=== PATIENT | female | born 1975 | race Caucasian/White ===

== ENCOUNTER 2017-06-23 06:35 | Emergency (ER) | payer OTHER, SELFPAY ==
[~2017-06-23] VITALS: Ht 175.3 cm; Wt 97.5 kg
[~2017-06-23 06:35] MED LIST: IBUP800 PO; Norco 10-325 T1 EACH PO; PROM25 PO
[2017-06-23] MEDS ORDERED: CHOL10002 (06:48)
[2017-06-23 07:14] LABS: Source, Urine Clean Catch
[2017-06-23 07:17] LABS: Bilirubin, Urine Neg (Neg); Blood, Urine 5+ (Neg); Glucose Qualitative, Urine 4+ (Neg); Ketones, Urine Neg (Neg); Leukocyte Esterase, Urine 3+ (Neg); Nitrite, Urine Neg (Neg); Protein, Urine 1+ (Neg); Urobilinogen, Urine NORM (Normal)
[2017-06-23 07:26] LABS: Appearance, Urine Hazy (Clear); Color, Urine Yellow (P-Yellow)
[2017-06-23 07:27] LABS: Amorphous Light (0-Heavy); Bacteria Mod /hpf; Squamous Epithelial Cells Few /hpf (Few)
[2017-06-23 07:27] LABS: BASOPHILS ABSOLUTE AUTO 0.05 K/mm3 (0.00-0.23); BASOPHILS PERCENT AUTO 0 % (0-2); EOSINOPHILS ABSOLUTE AUTO 0.12 K/mm3 (0.00-0.68); EOSINOPHILS PERCENT AUTO 1 % (0-6); Hematocrit 42.5 % (33.0-51.0); Hemoglobin 14.8 g/dL (11.5-16.0); IMMATURE GRAN ABSOLUTE AUTO 0.02 K/mm3 (0.00-0.10); IMMATURE GRAN PERCENT AUTO 0 % (0-1); LYMPHOCYTES ABSOLUTE AUTO 2.45 K/mm3 (0.84-5.20); LYMPHOCYTES PERCENT AUTO 22 % (21-46); MONOCYTES ABSOLUTE AUTO 0.44 K/mm3 (0.16-1.47); MONOCYTES PERCENT AUTO 4 % (4-13); Mean Corpuscular HGB 31.3 pg (26.0-34.0); Mean Corpuscular HGB Conc 34.8 g/dL (31.5-36.5); Mean Corpuscular Volume 90 fL (80-100); NEUTROPHILS ABSOLUTE AUTO 8.33 K/mm3 (1.96-9.15); NEUTROPHILS PERCENT AUTO 73 % (41-73); Platelet Count 316 K/mm3 (150-400); RDW Coefficient Variation 12.4 % (11.7-14.2); RDW Standard Deviation 40.9 fL (35.1-46.3); Red Blood Cell Count 4.73 M/mm3 (3.80-5.20); White Blood Cell Count 11.41 K/mm3 (4.00-11.30)
[2017-11-27] MEDS ORDERED: METFORMIN HCL500 M1 PO (07:40)
[2017-11-27] MEDS ORDERED: Mucinex100 MG PO (07:41)
[2017-11-27] MEDS ORDERED: ALLEGRA ALLERG180 MG PO (07:41)
== END 2017-06-23 08:21 | disposition home or self-care (01) ==
LOC: ER 06:35
PROVIDERS: Emergency Medicine
DX: O03.9 Complete or unspecified spontaneous abortion without complication (principal); Z79.899 Other long term (current) drug therapy; Z90.49 Acquired absence of other specified parts of digestive tract
CPT/HCPCS: 36415; 76830; 76856; 81001; 84702; 85025; 86900; 86901; 87086; 88305; 99284

== ENCOUNTER 2017-07-20 20:10 | Emergency (ER) | payer OTHER, SELFPAY ==
[~2017-07-20] VITALS: Ht 175.3 cm; Wt 104.3 kg
[~2017-07-20 20:10] MED LIST changes: +CHOL10002
[2017-07-20] MEDS ORDERED: IBUP800 PO (21:13)
[2017-11-27] MEDS ORDERED: METFORMIN HCL500 M1 PO (07:40)
[2017-11-27] MEDS ORDERED: Mucinex100 MG PO (07:41)
[2017-11-27] MEDS ORDERED: ALLEGRA ALLERG180 MG PO (07:41)
== END 2017-07-20 21:30 | disposition home or self-care (01) ==
LOC: ER 20:10
DX: M26.601 Right temporomandibular joint disorder, unspecified (principal); F17.210 Nicotine dependence, cigarettes, uncomplicated
CPT/HCPCS: 96372; 99283; J1885

== ENCOUNTER → 2017-08-06 | Outpatient (CLI) | payer OTHER ==
[2017-08-06 18:02] LABS: BASOPHILS ABSOLUTE AUTO 0.06 K/mm3 (0.00-0.23); BASOPHILS PERCENT AUTO 1 % (0-2); EOSINOPHILS ABSOLUTE AUTO 0.09 K/mm3 (0.00-0.68); EOSINOPHILS PERCENT AUTO 1 % (0-6); Hematocrit 44.8 % (33.0-51.0); Hemoglobin 15.8 g/dL (11.5-16.0); IMMATURE GRAN ABSOLUTE AUTO 0.02 K/mm3 (0.00-0.10); IMMATURE GRAN PERCENT AUTO 0 % (0-1); LYMPHOCYTES ABSOLUTE AUTO 3.06 K/mm3 (0.84-5.20); LYMPHOCYTES PERCENT AUTO 32 % (21-46); MONOCYTES ABSOLUTE AUTO 0.38 K/mm3 (0.16-1.47); MONOCYTES PERCENT AUTO 4 % (4-13); Mean Corpuscular HGB 31.2 pg (26.0-34.0); Mean Corpuscular HGB Conc 35.3 g/dL (31.5-36.5); Mean Corpuscular Volume 89 fL (80-100); Mean Platelet Volume 10.5 fL (9.1-12.4); NEUTROPHILS ABSOLUTE AUTO 6.08 K/mm3 (1.96-9.15); NEUTROPHILS PERCENT AUTO 63 % (41-73); Platelet Count 307 K/mm3 (150-400); RDW Coefficient Variation 12.1 % (11.7-14.2); Red Blood Cell Count 5.06 M/mm3 (3.80-5.20); White Blood Cell Count 9.69 K/mm3 (4.00-11.30)
[2017-08-06 18:47] LABS: Alanine Aminotransfer (ALT/SGP 26 U/L (12-78); Albumin, Blood 3.8 g/dL (3.4-5.0); Albumin/Globulin Ratio 1.1 (0.8-1.8); Alk Phos 69 U/L (50-136); Anion Gap 11 mmol/L (6-16); Aspartate Aminotrans (AST/SGOT 13 U/L (12-37); Bilirubin, Total 0.3 mg/dL (0.1-1.0); Blood Urea Nitrogen 12 mg/dL (8-24); Bun/Creatinine Ratio 22.1 (12.0-20.0); CHOL/HDL RATIO 6.9; CO2, Blood 25 mmol/L (21-32); Calcium, Blood 9.3 mg/dL (8.5-10.1); Chloride, Blood 100 mmol/L (98-108); Cholesterol 229 mg/dL (50-200); Creatinine, Blood 0.54 mg/dL (0.40-1.00); Free Thyroxine 0.84 ng/dL (0.70-1.60); Globulin, Blood 3.5 g/dL (2.2-4.0); Glomerular Filtration Rate >60 (60-); Glucose, Blood 194 mg/dL (70-99); HDL Cholesterol 33 mg/dL (>39); LDL/HDL RATIO 4.2; Low Density Lipoprotein Chol 140 mg/dL (0-110); Sodium, Blood 136 mmol/L (136-145); Total Protein, Blood 7.3 g/dL (6.4-8.2); Triglycerides 282 mg/dL (30-140); Very Low Density Lipoprot Chol 56 mg/dL (6-28)
== END | disposition home or self-care (01) ==
LOC: LAB SHORT 12:55 → LAB 12:55
PROVIDERS: Nurse Practitioner Adult Health
DX: E11.65 Type 2 diabetes mellitus with hyperglycemia (principal); E78.5 Hyperlipidemia, unspecified; G56.03 Carpal tunnel syndrome, bilateral upper limbs
CPT/HCPCS: 80053; 80061; 82043; 84439; 84443; 85025

== ENCOUNTER → 2017-09-23 | Outpatient (CLI) | payer OTHER | LOC: LAB SHORT 15:20 → LAB 15:20 | PROVIDERS: Registered Nurse Community Health | DX: Z12.4 Encounter for screening for malignant neoplasm of cervix (principal) | CPT/HCPCS: 87624; G0123 ==

== ENCOUNTER 2018-01-20 06:07 | Day surgery (SDC) | payer OTHER, SELFPAY ==
[~2018-01-20] VITALS: Ht 175.3 cm; Wt 101.9 kg
[~2018-01-20 06:07] MED LIST changes: +ALLEGRA ALLERG180 MG PO; +METFORMIN HCL500 M1 PO; +Mucinex100 MG PO
[2018-01-20] MEDS ORDERED: FISH OIL + D31 EACH (07:08)
== END 2018-01-20 09:50 | disposition home or self-care (01) ==
LOC: ORSCSDS 06:07
PROVIDERS: Orthopaedic Surgery
PROC: 01N50ZZ Release Median Nerve, Open Approach (ICD-10-PCS; principal; 2018-01-20 07:30)
PROC: 01N40ZZ Release Ulnar Nerve, Open Approach (ICD-10-PCS; 2018-01-20 07:30)
DX: G56.02 Carpal tunnel syndrome, left upper limb (principal); G56.22 Lesion of ulnar nerve, left upper limb; E78.5 Hyperlipidemia, unspecified; E11.9 Type 2 diabetes mellitus without complications; E66.9 Obesity, unspecified; Z68.33 Body mass index [BMI] 33.0-33.9, adult; F17.210 Nicotine dependence, cigarettes, uncomplicated; Z79.84 Long term (current) use of oral hypoglycemic drugs
CPT/HCPCS: 82947; J0690; J1100; J1885; J2250; J2405; J2795; J3010; J7120

== ENCOUNTER → 2018-05-27 | Outpatient (CLI) | payer OTHER, SELFPAY ==
[~2018-05-27] MED LIST changes: +FISH OIL + D31 EACH
[2018-05-27 18:14] LABS: BASOPHILS ABSOLUTE AUTO 0.05 K/mm3 (0.00-0.23); BASOPHILS PERCENT AUTO 0 % (0-2); EOSINOPHILS ABSOLUTE AUTO 0.11 K/mm3 (0.00-0.68); EOSINOPHILS PERCENT AUTO 1 % (0-6); Hematocrit 47.3 % (33.0-51.0); Hemoglobin 16.4 g/dL (11.5-16.0); IMMATURE GRAN ABSOLUTE AUTO 0.04 K/mm3 (0.00-0.10); IMMATURE GRAN PERCENT AUTO 0 % (0-1); LYMPHOCYTES ABSOLUTE AUTO 2.57 K/mm3 (0.84-5.20); LYMPHOCYTES PERCENT AUTO 21 % (21-46); MONOCYTES PERCENT AUTO 4 % (4-13); Mean Corpuscular HGB 31.8 pg (26.0-34.0); Mean Corpuscular HGB Conc 34.7 g/dL (31.5-36.5); Mean Corpuscular Volume 92 fL (80-100); NEUTROPHILS PERCENT AUTO 73 % (41-73); Platelet Count 279 K/mm3 (150-400); RDW Coefficient Variation 12.3 % (11.7-14.2); RDW Standard Deviation 41.2 fL (35.1-46.3); Red Blood Cell Count 5.16 M/mm3 (3.80-5.20); White Blood Cell Count 12.27 K/mm3 (4.00-11.30)
[2018-05-27 18:16] LABS: Bilirubin, Urine Neg (Neg); Blood, Urine Neg (Neg); Glucose Qualitative, Urine 3+ (Neg); Ketones, Urine Neg (Neg); Leukocyte Esterase, Urine Neg (Neg); Nitrite, Urine Neg (Neg); Protein, Urine 2+ (Neg); Urobilinogen, Urine NORM (Normal)
[2018-05-27 18:41] LABS: Appearance, Urine Clear (Clear); Color, Urine Yellow (P-Yellow)
[2018-05-27 18:42] LABS: Bacteria Few /hpf; Red Blood Cells, Urine 0-2 /hpf (0-2); Squamous Epithelial Cells Mod /hpf (Few); White Blood Cells, Urine 0-2 /hpf (0-5)
[2018-05-27 18:57] LABS: Alanine Aminotransfer (ALT/SGP 29 U/L (12-78); Albumin, Blood 4.1 g/dL (3.4-5.0); Albumin/Globulin Ratio 1.2 (0.8-1.8); Alk Phos 76 U/L (50-136); Anion Gap 6 mmol/L (6-16); Aspartate Aminotrans (AST/SGOT 10 U/L (12-37); Bilirubin, Total 0.4 mg/dL (0.1-1.0); Blood Urea Nitrogen 10 mg/dL (8-24); Bun/Creatinine Ratio 15.2 (12.0-20.0); CHOL/HDL RATIO 6.2; CO2, Blood 26 mmol/L (21-32); Calcium, Blood 8.9 mg/dL (8.5-10.1); Chloride, Blood 103 mmol/L (98-108); Cholesterol 150 mg/dL (50-200); Creatinine, Blood 0.66 mg/dL (0.40-1.00); Globulin, Blood 3.4 g/dL (2.2-4.0); Glomerular Filtration Rate >60 (60-); HDL Cholesterol 24 mg/dL (>39); LDL/HDL RATIO 3.8; Low Density Lipoprotein Chol 92 mg/dL (0-110); Potassium, Blood 4.1 mmol/L (3.5-5.5); Sodium, Blood 135 mmol/L (136-145); Total Protein, Blood 7.5 g/dL (6.4-8.2); Triglycerides 171 mg/dL (30-160); Very Low Density Lipoprot Chol 34 mg/dL (6-32)
[2018-05-27 19:36] LABS: Glucose, Blood 241 mg/dL (70-99)
== END ==
LOC: LAB 18:01 → LAB SHORT 18:01
PROVIDERS: Nurse Practitioner Family
DX: E11.65 Type 2 diabetes mellitus with hyperglycemia (principal)
CPT/HCPCS: 80053; 80061; 81001; 82043; 85025

== ENCOUNTER → 2018-07-29 | Outpatient (CLI) | payer OTHER ==
[2018-07-29 19:26] LABS: BASOPHILS ABSOLUTE AUTO 0.06 K/mm3 (0.00-0.23); BASOPHILS PERCENT AUTO 1 % (0-2); EOSINOPHILS ABSOLUTE AUTO 0.18 K/mm3 (0.00-0.68); EOSINOPHILS PERCENT AUTO 2 % (0-6); Hematocrit 47.2 % (33.0-51.0); Hemoglobin 16.2 g/dL (11.5-16.0); IMMATURE GRAN ABSOLUTE AUTO 0.03 K/mm3 (0.00-0.10); IMMATURE GRAN PERCENT AUTO 0 % (0-1); LYMPHOCYTES ABSOLUTE AUTO 2.96 K/mm3 (0.84-5.20); LYMPHOCYTES PERCENT AUTO 29 % (21-46); MONOCYTES ABSOLUTE AUTO 0.46 K/mm3 (0.16-1.47); MONOCYTES PERCENT AUTO 5 % (4-13); Mean Corpuscular HGB 31.8 pg (26.0-34.0); Mean Corpuscular HGB Conc 34.3 g/dL (31.5-36.5); Mean Corpuscular Volume 93 fL (80-100); Mean Platelet Volume 11.2 fL (9.1-12.4); NEUTROPHILS ABSOLUTE AUTO 6.51 K/mm3 (1.96-9.15); NEUTROPHILS PERCENT AUTO 64 % (41-73); Platelet Count 306 K/mm3 (150-400); RDW Coefficient Variation 12.6 % (11.7-14.2); RDW Standard Deviation 43.2 fL (35.1-46.3)
[2018-07-29 19:29] LABS: Appearance, Urine Clear (Clear); Bilirubin, Urine Neg (Neg); Blood, Urine Neg (Neg); Color, Urine Yellow (P-Yellow); Glucose Qualitative, Urine 4+ (Neg); Ketones, Urine Neg (Neg); Leukocyte Esterase, Urine Neg (Neg); Nitrite, Urine Neg (Neg); Protein, Urine 2+ (Neg); Specific Gravity, Urine 1.025 (1.003-1.022); Urobilinogen, Urine NORM (Normal)
[2018-07-29 19:49] LABS: Bacteria Few /hpf; Red Blood Cells, Urine Not Seen /hpf (0-2); Squamous Epithelial Cells Mod /hpf (Few); White Blood Cells, Urine 0-2 /hpf (0-5)
[2018-07-29 20:02] LABS: Very Low Density Lipoprot Chol 29 mg/dL (6-32)
[2018-07-29 20:19] LABS: Alanine Aminotransfer (ALT/SGP 24 U/L (12-78); Albumin, Blood 3.9 g/dL (3.4-5.0); Albumin/Globulin Ratio 1.2 (0.8-1.8); Alk Phos 80 U/L (50-136); Anion Gap 6 mmol/L (6-16); Aspartate Aminotrans (AST/SGOT 11 U/L (12-37); Bilirubin, Total 0.2 mg/dL (0.1-1.0); Blood Urea Nitrogen 11 mg/dL (8-24); Bun/Creatinine Ratio 21.2 (12.0-20.0); CHOL/HDL RATIO 5.7; CO2, Blood 24 mmol/L (21-32); Calcium, Blood 8.7 mg/dL (8.5-10.1); Chloride, Blood 108 mmol/L (98-108); Cholesterol 142 mg/dL (50-200); Creatinine, Blood 0.52 mg/dL (0.40-1.00); Globulin, Blood 3.3 g/dL (2.2-4.0); Glomerular Filtration Rate >60 (60-); Glucose, Blood 286 mg/dL (70-99); HDL Cholesterol 25 mg/dL (>39); LDL/HDL RATIO 3.5; Low Density Lipoprotein Chol 88 mg/dL (0-110); Potassium, Blood 4.1 mmol/L (3.5-5.5); Sodium, Blood 138 mmol/L (136-145); Total Protein, Blood 7.2 g/dL (6.4-8.2); Triglycerides 146 mg/dL (30-160)
== END ==
LOC: LAB SHORT 18:44 → LAB 18:44
PROVIDERS: Nurse Practitioner Family
DX: E11.65 Type 2 diabetes mellitus with hyperglycemia (principal)
CPT/HCPCS: 80053; 80061; 81001; 82043; 83036; 85025

== ENCOUNTER → 2019-02-08 | Outpatient (CLI) | payer OTHER ==
[2019-02-08 20:02] LABS: Appearance, Urine Hazy (Clear); Bilirubin, Urine Neg (Neg); Blood, Urine Neg (Neg); Color, Urine Yellow (P-Yellow); Glucose Qualitative, Urine Neg (Neg); Ketones, Urine Neg (Neg); Leukocyte Esterase, Urine Neg (Neg); Nitrite, Urine Neg (Neg); Protein, Urine 2+ (Neg); Specific Gravity, Urine 1.015 (1.003-1.022); Urobilinogen, Urine NORM (Normal)
[2019-02-08 20:04] LABS: BASOPHILS ABSOLUTE AUTO 0.05 K/mm3 (0.00-0.23); BASOPHILS PERCENT AUTO 1 % (0-2); EOSINOPHILS PERCENT AUTO 1 % (0-6); Hematocrit 45.9 % (33.0-51.0); Hemoglobin 15.6 g/dL (11.5-16.0); IMMATURE GRAN ABSOLUTE AUTO 0.03 K/mm3 (0.00-0.10); IMMATURE GRAN PERCENT AUTO 0 % (0-1); LYMPHOCYTES PERCENT AUTO 26 % (21-46); MONOCYTES ABSOLUTE AUTO 0.48 K/mm3 (0.16-1.47); MONOCYTES PERCENT AUTO 5 % (4-13); Mean Corpuscular HGB 32.2 pg (26.0-34.0); Mean Corpuscular Volume 95 fL (80-100); Mean Platelet Volume 10.6 fL (9.1-12.4); NEUTROPHILS ABSOLUTE AUTO 7.26 K/mm3 (1.96-9.15); NEUTROPHILS PERCENT AUTO 68 % (41-73); Platelet Count 309 K/mm3 (150-400); RDW Coefficient Variation 12.2 % (11.7-14.2); RDW Standard Deviation 42.4 fL (35.1-46.3); Red Blood Cell Count 4.85 M/mm3 (3.80-5.20); White Blood Cell Count 10.72 K/mm3 (4.00-11.30)
[2019-02-08 20:12] LABS: Bacteria Many /hpf; Red Blood Cells, Urine 0-2 /hpf (0-2); Squamous Epithelial Cells Many /hpf (Few); White Blood Cells, Urine 0-2 /hpf (0-5)
[2019-02-08 20:18] LABS: Alanine Aminotransfer (ALT/SGP 28 U/L (12-78); Albumin, Blood 3.9 g/dL (3.4-5.0); Albumin/Globulin Ratio 1.1 (0.8-1.8); Alk Phos 71 U/L (50-136); Anion Gap 3 mmol/L (6-16); Aspartate Aminotrans (AST/SGOT 15 U/L (12-37); Bilirubin, Total 0.2 mg/dL (0.1-1.0); Blood Urea Nitrogen 10 mg/dL (8-24); Bun/Creatinine Ratio 16.9 (12.0-20.0); CHOL/HDL RATIO 7.5; CO2, Blood 27 mmol/L (21-32); Calcium, Blood 9.1 mg/dL (8.5-10.1); Chloride, Blood 107 mmol/L (98-108); Cholesterol 217 mg/dL (50-200); Creatinine, Blood 0.59 mg/dL (0.40-1.00); Globulin, Blood 3.5 g/dL (2.2-4.0); Glomerular Filtration Rate >60 (60-); Glucose, Blood 155 mg/dL (70-99); HDL Cholesterol 29 mg/dL (>39); LDL/HDL RATIO 5.2; Low Density Lipoprotein Chol 150 mg/dL (0-110); Potassium, Blood 4.5 mmol/L (3.5-5.5); Sodium, Blood 137 mmol/L (136-145); Total Protein, Blood 7.4 g/dL (6.4-8.2); Triglycerides 192 mg/dL (30-160); Very Low Density Lipoprot Chol 38 mg/dL (6-32)
== END | disposition home or self-care (01) ==
LOC: LAB 18:39 → LAB SHORT 18:39
PROVIDERS: Nurse Practitioner Family
DX: E11.65 Type 2 diabetes mellitus with hyperglycemia (principal)
CPT/HCPCS: 80053; 80061; 81001; 82043; 83036; 85025; 87086

== ENCOUNTER → 2019-05-20 | Outpatient (CLI) | payer OTHER ==
[2019-05-20 16:34] LABS: Source, Urine Clean Catch
[2019-05-20 17:59] LABS: BASOPHILS ABSOLUTE AUTO 0.06 K/mm3 (0.00-0.23); BASOPHILS PERCENT AUTO 1 % (0-2); EOSINOPHILS ABSOLUTE AUTO 0.11 K/mm3 (0.00-0.68); EOSINOPHILS PERCENT AUTO 1 % (0-6); Hematocrit 45.8 % (33.0-51.0); Hemoglobin 15.5 g/dL (11.5-16.0); IMMATURE GRAN ABSOLUTE AUTO 0.03 K/mm3 (0.00-0.10); IMMATURE GRAN PERCENT AUTO 0 % (0-1); LYMPHOCYTES ABSOLUTE AUTO 2.81 K/mm3 (0.84-5.20); LYMPHOCYTES PERCENT AUTO 27 % (21-46); MONOCYTES ABSOLUTE AUTO 0.51 K/mm3 (0.16-1.47); MONOCYTES PERCENT AUTO 5 % (4-13); Mean Corpuscular HGB 31.6 pg (26.0-34.0); Mean Corpuscular HGB Conc 33.8 g/dL (31.5-36.5); Mean Corpuscular Volume 94 fL (80-100); Mean Platelet Volume 10.8 fL (9.1-12.4); NEUTROPHILS PERCENT AUTO 66 % (41-73); Platelet Count 443 K/mm3 (150-400); RDW Coefficient Variation 13.1 % (11.7-14.2); RDW Standard Deviation 44.3 fL (35.1-46.3); White Blood Cell Count 10.32 K/mm3 (4.00-11.30)
[2019-05-20 18:13] LABS: Alanine Aminotransfer (ALT/SGP 22 U/L (12-78); Albumin, Blood 4.1 g/dL (3.4-5.0); Albumin/Globulin Ratio 1.2 (0.8-1.8); Alk Phos 66 U/L (50-136); Anion Gap 7 mmol/L (6-16); Aspartate Aminotrans (AST/SGOT 11 U/L (12-37); Bilirubin, Total 0.2 mg/dL (0.1-1.0); Blood Urea Nitrogen 13 mg/dL (8-24); Bun/Creatinine Ratio 21.7 (12.0-20.0); CHOL/HDL RATIO 7.9; CO2, Blood 26 mmol/L (21-32); Calcium, Blood 9.2 mg/dL (8.5-10.1); Chloride, Blood 105 mmol/L (98-108); Cholesterol 228 mg/dL (50-200); Globulin, Blood 3.5 g/dL (2.2-4.0); Glomerular Filtration Rate >60 (60-); Glucose, Blood 272 mg/dL (70-99); HDL Cholesterol 29 mg/dL (>39); LDL/HDL RATIO 4.2; Low Density Lipoprotein Chol 123 mg/dL (0-110); Sodium, Blood 138 mmol/L (136-145); Total Protein, Blood 7.6 g/dL (6.4-8.2); Triglycerides 380 mg/dL (30-160); Very Low Density Lipoprot Chol 76 mg/dL (6-32)
[2019-05-20 18:16] LABS: Bilirubin, Urine Neg (Neg); Blood, Urine Neg (Neg); Glucose Qualitative, Urine 4+ (Neg); Ketones, Urine 1+ (Neg); Leukocyte Esterase, Urine Neg (Neg); Nitrite, Urine Neg (Neg); Protein, Urine 2+ (Neg); Urobilinogen, Urine 1+ (Normal)
[2019-05-20 18:29] LABS: Appearance, Urine Clear (Clear); Color, Urine Yellow (P-Yellow)
[2019-05-20 18:30] LABS: Bacteria Few /hpf; Red Blood Cells, Urine 0-2 /hpf (0-2); Squamous Epithelial Cells Many /hpf (Few); White Blood Cells, Urine 0-2 /hpf (0-5)
[2019-05-20 18:35] LABS: Creatinine, Urine Random 86.5 mg/dL (27.00-270.00)
[2019-05-20 18:38] LABS: Microalb/Creat Ratio UR, Rand 321.387 mg/g (0.000-30.000)
== END | disposition home or self-care (01) ==
LOC: LAB 16:28 → LAB SHORT 16:28
PROVIDERS: Nurse Practitioner Family
DX: E78.2 Mixed hyperlipidemia (principal); E11.65 Type 2 diabetes mellitus with hyperglycemia
CPT/HCPCS: 80053; 80061; 81001; 82043; 82570; 83036; 85025

== ENCOUNTER → 2019-10-26 | Outpatient (CLI) | payer OTHER ==
[2019-10-26 17:03] LABS: Source, Urine Clean Catch
[2019-10-26 18:36] LABS: BASOPHILS ABSOLUTE AUTO 0.05 K/mm3 (0.00-0.23); BASOPHILS PERCENT AUTO 1 % (0-2); EOSINOPHILS ABSOLUTE AUTO 0.13 K/mm3 (0.00-0.68); EOSINOPHILS PERCENT AUTO 1 % (0-6); Hematocrit 46.2 % (33.0-51.0); Hemoglobin 15.7 g/dL (11.5-16.0); IMMATURE GRAN ABSOLUTE AUTO 0.02 K/mm3 (0.00-0.10); IMMATURE GRAN PERCENT AUTO 0 % (0-1); LYMPHOCYTES PERCENT AUTO 25 % (21-46); MONOCYTES ABSOLUTE AUTO 0.53 K/mm3 (0.16-1.47); MONOCYTES PERCENT AUTO 6 % (4-13); Mean Corpuscular HGB 32.4 pg (26.0-34.0); Mean Corpuscular Volume 95 fL (80-100); Mean Platelet Volume 11.3 fL (9.1-12.4); NEUTROPHILS ABSOLUTE AUTO 6.03 K/mm3 (1.96-9.15); NEUTROPHILS PERCENT AUTO 67 % (41-73); Platelet Count 337 K/mm3 (150-400); RDW Coefficient Variation 12.8 % (11.7-14.2); Red Blood Cell Count 4.85 M/mm3 (3.80-5.20); White Blood Cell Count 9.06 K/mm3 (4.00-11.30)
[2019-10-26 18:39] LABS: Bilirubin, Urine Neg (Neg); Blood, Urine Neg (Neg); Glucose Qualitative, Urine Neg (Neg); Ketones, Urine Neg (Neg); Leukocyte Esterase, Urine Neg (Neg); Nitrite, Urine Neg (Neg); Protein, Urine 1+ (Neg); Specific Gravity, Urine 1.015 (1.003-1.022); Urobilinogen, Urine NORM (Normal)
[2019-10-26 18:40] LABS: Appearance, Urine Clear (Clear); Color, Urine Yellow (P-Yellow)
[2019-10-26 19:29] LABS: Albumin, Blood 4.1 g/dL (3.4-5.0); Albumin/Globulin Ratio 1.1 (0.8-1.8); Alk Phos 71 U/L (50-136); Anion Gap 8 mmol/L (6-16); Aspartate Aminotrans (AST/SGOT 18 U/L (12-37); Bilirubin, Total 0.6 mg/dL (0.1-1.0); Blood Urea Nitrogen 11 mg/dL (8-24); CHOL/HDL RATIO 8.8; CO2, Blood 24 mmol/L (21-32); Calcium, Blood 8.9 mg/dL (8.5-10.1); Chloride, Blood 107 mmol/L (98-108); Cholesterol 246 mg/dL (50-200); Globulin, Blood 3.6 g/dL (2.2-4.0); Glucose, Blood 132 mg/dL (70-99); HDL Cholesterol 28 mg/dL (>39); LDL/HDL RATIO 6.4; Low Density Lipoprotein Chol 178 mg/dL (0-110); Sodium, Blood 139 mmol/L (136-145); Total Protein, Blood 7.7 g/dL (6.4-8.2); Triglycerides 198 mg/dL (30-160); Very Low Density Lipoprot Chol 39 mg/dL (6-32)
[2019-10-26 19:37] LABS: Alanine Aminotransfer (ALT/SGP 22 U/L (12-78); Bun/Creatinine Ratio 15.6 (12.0-20.0); Glomerular Filtration Rate >60 (60-)
[2019-10-26 20:12] LABS: Creatinine, Urine Random 78.8 mg/dL (27.00-270.00); Microalb/Creat Ratio UR, Rand 168.782 mg/g (0.000-30.000)
== END | disposition home or self-care (01) ==
LOC: LAB 13:00 → LAB SHORT 13:00
PROVIDERS: Nurse Practitioner Family
DX: Z11.59 Encounter for screening for other viral diseases (principal); E78.2 Mixed hyperlipidemia; E11.65 Type 2 diabetes mellitus with hyperglycemia
CPT/HCPCS: 80053; 80061; 82043; 82570; 83036; 85025; 86803

== ENCOUNTER → 2020-02-17 | Outpatient (CLI) | payer OTHER ==
[2020-02-17 17:46] LABS: BASOPHILS ABSOLUTE AUTO 0.07 K/mm3 (0.00-0.23); BASOPHILS PERCENT AUTO 1 % (0-2); EOSINOPHILS ABSOLUTE AUTO 0.12 K/mm3 (0.00-0.68); EOSINOPHILS PERCENT AUTO 1 % (0-6); Hematocrit 43.6 % (33.0-51.0); Hemoglobin 14.8 g/dL (11.5-16.0); IMMATURE GRAN ABSOLUTE AUTO 0.04 K/mm3 (0.00-0.10); IMMATURE GRAN PERCENT AUTO 0 % (0-1); LYMPHOCYTES ABSOLUTE AUTO 2.74 K/mm3 (0.84-5.20); LYMPHOCYTES PERCENT AUTO 21 % (21-46); MONOCYTES ABSOLUTE AUTO 0.68 K/mm3 (0.16-1.47); MONOCYTES PERCENT AUTO 5 % (4-13); Mean Corpuscular HGB 32.3 pg (26.0-34.0); Mean Corpuscular HGB Conc 33.9 g/dL (31.5-36.5); Mean Corpuscular Volume 95 fL (80-100); Mean Platelet Volume 11.6 fL (9.1-12.4); NEUTROPHILS ABSOLUTE AUTO 9.41 K/mm3 (1.96-9.15); NEUTROPHILS PERCENT AUTO 72 % (41-73); Platelet Count 282 K/mm3 (150-400); RDW Coefficient Variation 13.2 % (11.7-14.2); RDW Standard Deviation 45.4 fL (35.1-46.3); Red Blood Cell Count 4.58 M/mm3 (3.80-5.20); White Blood Cell Count 13.06 K/mm3 (4.00-11.30)
[2020-02-17 18:46] LABS: Alanine Aminotransfer (ALT/SGP 23 U/L (12-78); Albumin, Blood 3.8 g/dL (3.4-5.0); Alk Phos 72 U/L (50-136); Anion Gap 6 mmol/L (6-16); Aspartate Aminotrans (AST/SGOT 8 U/L (12-37); Bilirubin, Total 0.3 mg/dL (0.1-1.0); Blood Urea Nitrogen 13 mg/dL (8-24); Bun/Creatinine Ratio 22.4 (12.0-20.0); CO2, Blood 28 mmol/L (21-32); Calcium, Blood 9.3 mg/dL (8.5-10.1); Chloride, Blood 106 mmol/L (98-108); Creatinine, Blood 0.58 mg/dL (0.40-1.00); Globulin, Blood 3.8 g/dL (2.2-4.0); Glomerular Filtration Rate >60 (60-); Glucose, Blood 224 mg/dL (70-99); Potassium, Blood 4.4 mmol/L (3.5-5.5); Sodium, Blood 140 mmol/L (136-145); Total Protein, Blood 7.6 g/dL (6.4-8.2)
== END | disposition home or self-care (01) ==
LOC: LAB 16:45 → LAB SHORT 16:45
PROVIDERS: Nurse Practitioner Family
DX: Z11.59 Encounter for screening for other viral diseases (principal); E11.65 Type 2 diabetes mellitus with hyperglycemia
CPT/HCPCS: 80053; 85025; 86803

== ENCOUNTER → 2020-07-24 | Outpatient (CLI) | payer OTHER ==
[2020-07-25 16:10] LABS: HPV 16 Negative (Negative); HPV 18 Negative (Negative); HPV OTHER HR TYPES Negative (Negative)
== END | disposition home or self-care (01) ==
LOC: LAB SHORT 14:40 → LAB 14:40
PROVIDERS: Nurse Practitioner
DX: Z12.4 Encounter for screening for malignant neoplasm of cervix (principal)
CPT/HCPCS: 87624; G0123

== ENCOUNTER → 2020-08-17 | Outpatient (CLI) | payer OTHER ==
[2020-08-17 17:53] LABS: BASOPHILS ABSOLUTE AUTO 0.05 K/mm3 (0.00-0.23); BASOPHILS PERCENT AUTO 1 % (0-2); EOSINOPHILS PERCENT AUTO 1 % (0-6); Hematocrit 46.1 % (33.0-51.0); Hemoglobin 15.6 g/dL (11.5-16.0); IMMATURE GRAN ABSOLUTE AUTO 0.02 K/mm3 (0.00-0.10); IMMATURE GRAN PERCENT AUTO 0 % (0-1); LYMPHOCYTES ABSOLUTE AUTO 2.26 K/mm3 (0.84-5.20); LYMPHOCYTES PERCENT AUTO 21 % (21-46); MONOCYTES ABSOLUTE AUTO 0.42 K/mm3 (0.16-1.47); MONOCYTES PERCENT AUTO 4 % (4-13); Mean Corpuscular HGB 31.3 pg (26.0-34.0); Mean Corpuscular HGB Conc 33.8 g/dL (31.5-36.5); Mean Corpuscular Volume 93 fL (80-100); Mean Platelet Volume 11.3 fL (9.1-12.4); NEUTROPHILS ABSOLUTE AUTO 8.08 K/mm3 (1.96-9.15); NEUTROPHILS PERCENT AUTO 74 % (41-73); Platelet Count 296 K/mm3 (150-400); RDW Coefficient Variation 13.1 % (11.7-14.2); RDW Standard Deviation 44.7 fL (35.1-46.3); Red Blood Cell Count 4.98 M/mm3 (3.80-5.20); White Blood Cell Count 10.93 K/mm3 (4.00-11.30)
[2020-08-17 19:17] LABS: CHOL/HDL RATIO 9.2; Cholesterol 222 mg/dL (50-200); HDL Cholesterol 24 mg/dL (>39); LDL/HDL RATIO 6.3; Low Density Lipoprotein Chol 150 mg/dL (0-110); Triglycerides 239 mg/dL (30-160); Very Low Density Lipoprot Chol 47 mg/dL (6-32)
== END | disposition home or self-care (01) ==
LOC: LAB SHORT 16:48 → OLS 16:48
PROVIDERS: Nurse Practitioner Family
DX: E78.5 Hyperlipidemia, unspecified (principal)
CPT/HCPCS: 80061; 85025

== ENCOUNTER → 2021-03-28 | Outpatient (CLI) | payer OTHER ==
[2021-03-28 17:52] LABS: BASOPHILS ABSOLUTE AUTO 0.06 K/mm3 (0.00-0.23); BASOPHILS PERCENT AUTO 1 % (0-2); EOSINOPHILS ABSOLUTE AUTO 0.12 K/mm3 (0.00-0.68); EOSINOPHILS PERCENT AUTO 1 % (0-6); Hematocrit 45.5 % (33.0-51.0); Hemoglobin 15.7 g/dL (11.5-16.0); IMMATURE GRAN ABSOLUTE AUTO 0.03 K/mm3 (0.00-0.10); IMMATURE GRAN PERCENT AUTO 0 % (0-1); LYMPHOCYTES ABSOLUTE AUTO 2.09 K/mm3 (0.84-5.20); LYMPHOCYTES PERCENT AUTO 24 % (21-46); MONOCYTES ABSOLUTE AUTO 0.38 K/mm3 (0.16-1.47); MONOCYTES PERCENT AUTO 4 % (4-13); Mean Corpuscular HGB 31.7 pg (26.0-34.0); Mean Corpuscular HGB Conc 34.5 g/dL (31.5-36.5); Mean Corpuscular Volume 92 fL (80-100); Mean Platelet Volume 11.2 fL (9.1-12.4); NEUTROPHILS ABSOLUTE AUTO 6.23 K/mm3 (1.96-9.15); NEUTROPHILS PERCENT AUTO 70 % (41-73); Platelet Count 310 K/mm3 (150-400); RDW Coefficient Variation 11.9 % (11.7-14.2); Red Blood Cell Count 4.95 M/mm3 (3.80-5.20); White Blood Cell Count 8.91 K/mm3 (4.00-11.30)
[2021-03-28 18:02] LABS: Alanine Aminotransfer (ALT/SGP 20 U/L (12-78); Albumin/Globulin Ratio 1.1 (0.8-1.8); Alk Phos 73 U/L (50-136); Anion Gap 7 mmol/L (6-16); Aspartate Aminotrans (AST/SGOT 12 U/L (12-37); Bilirubin, Total 0.3 mg/dL (0.1-1.0); Blood Urea Nitrogen 17 mg/dL (8-24); Bun/Creatinine Ratio 25.1 (12.0-20.0); CO2, Blood 23 mmol/L (21-32); Chloride, Blood 109 mmol/L (98-108); Cholesterol 209 mg/dL (50-200); Creatinine, Blood 0.68 mg/dL (0.40-1.00); Globulin, Blood 3.6 g/dL (2.2-4.0); Glomerular Filtration Rate >60 (60-); Glucose, Blood 221 mg/dL (70-99); HDL Cholesterol 30 mg/dL (>39); LDL/HDL RATIO 4.8; Low Density Lipoprotein Chol 145 mg/dL (0-110); Potassium, Blood 3.9 mmol/L (3.5-5.5); Sodium, Blood 139 mmol/L (136-145); Total Protein, Blood 7.6 g/dL (6.4-8.2); Triglycerides 168 mg/dL (30-160); Very Low Density Lipoprot Chol 33 mg/dL (6-32)
== END | disposition home or self-care (01) ==
LOC: LAB 16:20 → LAB SHORT 16:20
PROVIDERS: Nurse Practitioner Family
DX: E78.5 Hyperlipidemia, unspecified (principal); E11.65 Type 2 diabetes mellitus with hyperglycemia
CPT/HCPCS: 80053; 80061; 83036; 85025

== ENCOUNTER → 2024-04-22 | Outpatient (CLI) | payer BC ==
[2024-05-03 11:25] LABS: HPV HIGH RISK BY TMA Not Detected; HPV SOURCE Cervical
== END ==
LOC: LAB SHORT 17:09 → LAB 17:09
PROVIDERS: Family Medicine
DX: Z01.419 Encounter for gynecological examination (general) (routine) without abnormal findings (principal)
CPT/HCPCS: 87624; G0123

== ENCOUNTER → 2024-06-13 | Outpatient (CLI) | payer BC | LOC: LAB SHORT 14:20 → LAB 14:20 | DX: M79.601 Pain in right arm (principal) | CPT/HCPCS: 85379 ==

== ENCOUNTER 2024-08-13 08:42 | Day surgery (SDC) | payer BC ==
[~2024-08-13] VITALS: Ht 172.7 cm; Wt 89.0 kg
[~2024-08-13 08:42] MED LIST changes: +Lidocaine 1%-Epineph 1:200000 30 ML SDV ONE
[2024-08-13] MEDS ORDERED: FentaNYL Citrate 50 MCG/ML 2 ML Injection ONE (09:18)
[2024-08-13] MEDS ORDERED: EZETIMIBE10 M6 PO (09:18)
[2024-08-13] MEDS ORDERED: Midazolam HCl 1MG / ML 2ML Vial ONE (09:18)
[2024-08-13] MEDS ORDERED: propofoL 40 ML IV ONE (09:18)
[2024-08-13] MEDS ORDERED: OLMESARTAN MEDOX5 MG PO (09:18)
[2024-08-13] MEDS ORDERED: TOCO1000 PO (09:18)
[2024-08-13] MEDS ORDERED: Dexamethasone Sod Phos 10 MG/ML 1ML VIAL ONE (09:19)
[2024-08-13] MEDS ORDERED: Ketorolac Tromethamine 30mg Vial ONE (09:19)
[2024-08-13] MEDS ORDERED: Ondansetron HCl 2 MG / ML 2ML Vial ONE (09:19)
[2024-08-13] MEDS ORDERED: CENTRUM SILVER1 EAC2 PO (09:19)
[2024-08-13] MEDS ORDERED: OZEMPIC1 MG/0.72 SL (09:20)
[2024-08-13] MEDS ORDERED: Lactated Ringer's 1,000 ML IV ONE (09:28)
[2024-08-13] MEDS ORDERED: Bupivacaine 0.5% HCl 5 MG/ML 30MLVIAL INJ ONE (10:37)
[2024-08-13] MEDS ORDERED: Phenylephrine HCl 100 MCG/ML-NS 10MLSYR (1MG/10ML) ONE (11:01)
[2024-08-13] MEDS ORDERED: ePHEDrine Sulfate 50 MG/ML 1ML Injection ONE (11:01)
[2024-08-13 12:14] VITALS: BP 139/74
--- NOTE | 2024-08-13 12:35 | NUR ---
08/13/24 1235 Raza Gaitan PT DENIES PAIN OR DISCOMFORT. DENIES NAUSEA. STATES READY FOR DISCHARGE ONCE DC INSTRUCTIONS ARE COMPLETED
== END 2024-08-13 12:47 | disposition home or self-care (01) ==
LOC: ORSCSDS 08:42
PROVIDERS: Obstetrics & Gynecology
PROC: 0UBMXZX Excision of Vulva, External Approach, Diagnostic (ICD-10-PCS; principal; 2024-08-13 10:15)
DX: N90.7 Vulvar cyst (principal); I10 Essential (primary) hypertension; F17.210 Nicotine dependence, cigarettes, uncomplicated; Z79.899 Other long term (current) drug therapy; E66.9 Obesity, unspecified; Z68.29 Body mass index [BMI] 29.0-29.9, adult
CPT/HCPCS: 82947; 88304; J1100; J1885; J2250; J2371; J2405; J2704; J3010

== ENCOUNTER 2025-01-07 10:32 | Day surgery (SDC) | payer BC ==
[~2025-01-07] VITALS: Ht 172.7 cm; Wt 99.3 kg
[~2025-01-07 10:32] MED LIST changes: +Bupivacaine 0.5% W/EPI 1:200000 SDV 30 ML Vial ONE; +CENTRUM SILVER1 EAC2 PO; +Chantix1 MG PO; +EZETIMIBE10 M6 PO; -Lidocaine 1%-Epineph 1:200000 30 ML SDV ONE; +Lidocaine HCl 2% 10 ML SDA ONE; +OLMESARTAN MEDOX5 MG PO; +OZEMPIC1 MG/0.72 SL; +TOCO1000 PO
[2025-01-07] MEDS ORDERED: CeFAZolin Sodium 2,000 MG VIAL ONE (10:57)
[2025-01-07] MEDS ORDERED: Lidocaine HCl 2% 10 ML SDA ONE (11:38)
[2025-01-07] MEDS ORDERED: FentaNYL Citrate 50 MCG/ML 2 ML Injection ONE (11:40)
[2025-01-07] MEDS ORDERED: Rocuronium Bromide 10 MG/ML 5ML Injection IV ONE (11:46)
[2025-01-07] MEDS ORDERED: ePHEDrine Sulfate 50 MG/ML 1ML Injection ONE (12:23)
[2025-01-07] MEDS ORDERED: Ondansetron HCl 2 MG / ML 2ML Vial ONE (16:20)
[2025-01-07 16:54] VITALS: BP 123/62
[2025-01-07] MEDS ORDERED: Dexamethasone Sod Phos 10 MG/ML 1ML VIAL XX ONE (19:12)
== END 2025-01-07 16:48 | disposition home or self-care (01) ==
LOC: ORSCSDS 10:32
PROVIDERS: Podiatrist Foot & Ankle Surgery
PROC: 0QSQ04Z Reposition Right Toe Phalanx with Internal Fixation Device, Open Approach (ICD-10-PCS; principal; 2025-01-07 12:00)
PROC: 0QSN04Z Reposition Right Metatarsal with Internal Fixation Device, Open Approach (ICD-10-PCS; principal; 2025-01-07 12:00)
DX: M20.11 Hallux valgus (acquired), right foot (principal); M21.621 Bunionette of right foot; I10 Essential (primary) hypertension; E11.9 Type 2 diabetes mellitus without complications; Z79.899 Other long term (current) drug therapy; Z79.85 Long-term (current) use of injectable non-insulin antidiabetic drugs
CPT/HCPCS: 82947; A6253; C1713; J0690; J1100; J2003; J2405; J2704; J3010; J7120